=== PATIENT | female | born 1945 | race Caucasian/White ===

== ENCOUNTER 2016-12-09 15:21 | Emergency (ER) | payer MEDICARE, BC, OTHER ==
--- NOTE | 2016-12-09 16:19 | RAD ---
EXAM: THREE VIEWS LEFT ANKLE 12/09/16 HISTORY: Pain. Trauma. COMPARISON: None. FINDINGS: Soft tissue swelling. Joint space appears to be preserved. No fracture. IMPRESSION: Soft tissue swelling. No fracture. POS: [facility]
--- NOTE | 2016-12-09 16:20 | RAD ---
LEFT LEG 2 VIEWS: HISTORY: Trauma. Left leg pain. FINDINGS/IMPRESSION: There are postop changes of total knee arthroplasty. The left tibia and fibula are otherwise intact . POS: [facility]
--- NOTE | 2016-12-09 16:23 | RAD ---
RIGHT ANKLE 3 VIEWS: HISTORY: Trauma, right ankle pain. FINDINGS/IMPRESSION: Soft tissue swelling is present. The ankle mortise is maintained. No acute fracture or dislocation is identified. A small plantar calcaneal spur is present. POS: [facility]
--- NOTE | 2016-12-09 16:28 | RAD ---
RIGHT LEG 2 VIEWS: HISTORY: Trauma, right leg pain. FINDINGS/IMPRESSION: There are postop changes of total knee arthroplasty. The right tibia and fibula are otherwise intac t. POS: [facility]
--- NOTE | 2016-12-09 16:40 | RAD ---
RIGHT KNEE FOUR VIEWS: 12/09/16 HISTORY: Trauma, right knee pain. FINDINGS/IMPRESSION: There are postop changes of total knee arthroplasty in good position and alignment. No acute fractur e or dislocation is seen. No perihardware lucency is identified to suggest loosening. POS: [facility]
--- NOTE | 2016-12-09 16:45 | RAD ---
LEFT KNEE FOUR VIEWS 12/09/16 HISTORY: Left knee pain after injury. FINDINGS: Total knee prosthesis is in place. No hardware lucency is evident. There is no acute fracture, dislo cation, or fluid distention of the joint capsule evident. IMPRESSION: Left knee prosthesis. No acute osseous abnormalities are demonstrated. POS: [facility]
--- NOTE | 2016-12-09 16:51 | RAD ---
RIGHT WRIST THREE VIEWS 12/09/16 HISTORY: Trauma, right wrist pain. FINDINGS/IMPRESSION: There are postop changes with metallic hardware in the distal radius. No acute fracture or dislocati on is seen. There is sclerotic change in the distal radial metaphysis most likely secondary to heali ng of a previous fracture rather than impaction. Metallic hardware is intact. If symptoms do not improve, a followup exam should be obtained in 7-10 days. This study was interpreted with consultation with Dr. Brannon Rodriguez who concurs. POS: [facility]
--- NOTE | 2016-12-09 16:53 | RAD ---
RIGHT FOREARM TWO VIEWS HISTORY: Trauma. Right forearm pain. FINDINGS: There is an internally fixed healed fracture of the distal radius. The radius and ulna are otherwis e intact. There is metallic hardware in the distal radius, in good position and alignment. POS: [facility]
[2016-12-09] MEDS ORDERED: Ketorolac Tromethamine 30 MG/ML VIAL ONE ×2 (17:06→17:17)
== END 2016-12-09 17:45 | disposition home or self-care (01) ==
LOC: MADERS 15:21
DX: S80.12XA Contusion of left lower leg, initial encounter (principal); S80.11XA Contusion of right lower leg, initial encounter; S50.811A Abrasion of right forearm, initial encounter; I25.2 Old myocardial infarction; I10 Essential (primary) hypertension; E66.9 Obesity, unspecified; F41.9 Anxiety disorder, unspecified; V49.9XXA Car occupant (driver) (passenger) injured in unspecified traffic accident, initial encounter
CPT/HCPCS: 96372; J1885